=== PATIENT | female | born 1940 | race Caucasian/White ===

== ENCOUNTER 2018-08-03 08:40 | Day surgery (SDC) | payer MEDICARE ==
[2018-08-03] MEDS ORDERED: EPHEDRINE SULFATE 50 MG/ML ML IV ONE (08:41)
[2018-08-03] MEDS ORDERED: PROPOFOL 10 MG/ML VIAL IV ONE (08:41)
[2018-08-03] MEDS ORDERED: LIDOCAINE 2% MDV (20MG/ML) 20ML VIAL IV ONE (08:41)
--- NOTE | 2018-08-04 09:50 | Operative Note ---
DATE OF SURGERY: 08/03/2018 OPERATION: ESOPHAGOGASTRODUODENOSCOPY with multiple biopsies. INDICATION: Intermittent episodes of dysphagia, particularly to scrambled eggs. The patient claims she has had problems with painful, sometimes difficult swallowing pointing to the mid chest region. She denies issues with meats or breads. Upper endoscopy is performed now for further evaluation. She denies pyrosis. ANESTHESIA: Intravenous sedation was administered by the department of anesthesiology and included Diprivan titrated to effect. PROCEDURE: Following informed consent from this alert individual, including a discussion of the risks and benefits of the procedure and an opportunity for the patient to ask questions, the patient was in the left lateral decubitus position. The Olympus GMP866 video endoscope was inserted into the esophagus without resistance. The proximal esophagus had a normal appearance with normal folds and distensibility. The mid esophagus likewise was free from changes. The distal esophageal segment was also free from mucosal abnormalities. There was no stricture formation or obvious inflammatory change. The squamocolumnar junction was smooth and well defined and approximated the diaphragmatic hiatus. The structure was traversed and the stomach was entered and found to be unremarkable. There were no ulcerations or erosions noted. The pylorus was patent. The duodenal bulb, sweep and descending duodenum were examined in a serial fashion and found to be normal. The endoscope was then brought back into the stomach where retroflexion accomplished following air insufflation failed to demonstrate any changes. The endoscope was withdrawn back into the esophagus where biopsies were taken from throughout the esophagus to evaluate for inflammatory changes or possible eosinophilic esophagitis. Again, overall, the mucosa and the esophagus appeared to be normal. The instrument was then removed. The patient tolerated the procedure well and was returned to the recovery area in stable condition. IMPRESSION: Unremarkable esophagogastroduodenoscopy. Biopsies taken from the esophagus to rule out microscopic inflammatory or eosinophilic esophagitis. RECOMMENDATION: Pending the results of biopsy, further recommendations might include a barium esophagram to see if in fact she has tertiary contractions or presbyesophagus causing her intermittent dysphagia, which seems more likely. Followup will be with Juan Pablo Pittman DO. Further recommendations forthcoming pending pathology. As always, thank you for allowing me to participate in the care of your patient. CC: DO ELANA Gonsales
--- NOTE | 2018-08-04 09:50 | Operative Note ---
DATE OF SURGERY: 08/03/2018 OPERATION: COLONOSCOPY to the cecum. INDICATION: History of polyp removed in 2004. The exact nature of the polyp was unclear. It had some components of inflammation but an adenomatous polyp was not excluded. She had a repeat colonoscopy in 2009. She returns at this time for surveillance. ANESTHESIA: Intravenous sedation was administered by the department of anesthesiology and included Diprivan titrated to effect. PROCEDURE: Following informed consent from this alert individual including a discussion of the risks and benefits of the procedure and an opportunity for the patient to ask questions, the patient was in the left lateral decubitus position. A digital rectal examination was performed. No abnormalities were noted. Following this, the Olympus [id number] video colonoscope was inserted into the rectum without resistance. The rectal mucosa had a normal appearance with normal folds and distensibility. The colonoscope was advanced up through the bowel to the level of the cecum without much difficulty. Throughout the bowel the mucosa appeared normal, the folds were normal, and the bowel was fairly well distensible. The cecum was well defined by noting the appendiceal orifice and ileocecal valve. Retroflexion in the cecum initially suggested a possible polyp noted. However, upon further evaluation, it was never relocated despite antegrade and retrograde inspection. Overall, the colon preparation was good. No other mucosal changes were appreciated upon withdrawal of the colonoscope throughout the bowel until the rectum as reached. Within the rectum, there were hypertrophied anal papillae noted on retroflexion. The endoscope was straightened and removed. The patient tolerated the procedure well and was returned to the recovery area in stable condition. IMPRESSION: 1. Hypertrophied anal papillae. 2. Otherwise unremarkable colonoscopy to the cecum. RECOMMENDATIONS: Because of the patient's prior history of polyp, I did recommend surveillance examination in 5 years' time or sooner should problems arise. Followup will otherwise be with Juan Pablo Pittman DO. As always, thank you for allowing me to participate in the care of your patient. CC: DO ELANA Gonsales
== END 2018-08-03 10:40 | disposition home or self-care (01) ==
LOC: HOP 08:40
PROVIDERS: ATTEND Internal Medicine Gastroenterology
DX: Z12.11 Encounter for screening for malignant neoplasm of colon (principal); Z86.010 Personal history of colon polyps; K62.89 Other specified diseases of anus and rectum; R13.10 Dysphagia, unspecified; B37.81 Candidal esophagitis; I10 Essential (primary) hypertension
CPT/HCPCS: 00813; 43239; G0105